=== PATIENT | female | born 1995 | race Caucasian/White ===

== ENCOUNTER 2019-08-10 11:18 | Day surgery (SDC) | payer OTHER ==
[~2019-08-10] VITALS: Ht 142.2 cm; Wt 40.4 kg
[2019-08-10] MEDS ORDERED: Keppra100 MG/1 M (12:03)
[2019-08-10] MEDS ORDERED: E E S (12:03)
[2019-08-10] MEDS ORDERED: Calcitriol1 MCG/ML (12:05)
[2019-08-10] MEDS ORDERED: Milk Of Ma400 MG/5 M (12:05)
[2019-08-10] MEDS ORDERED: Potassium20 MEQ/11 (12:05)
[2019-08-10] MEDS ORDERED: CLOBAZAM10 MG (12:06)
[2019-08-10] MEDS ORDERED: TOPI100 (12:06)
[2019-08-10] MEDS ORDERED: Prevacid Soluta30 MG (12:06)
[2019-08-10] MEDS ORDERED: Motrin100 MG/5 M (12:07)
[2019-08-10] MEDS ORDERED: Depo-Subq104 MG/0.6 (12:07)
[2019-08-10] MEDS ORDERED: BISA10S (12:08)
--- NOTE | 2019-08-10 17:34 | NUR ---
08/10/19 [id number] Jolanta Reece LATE ENTRY PT WAS ACCOMPANIED BY HER MOM AND CAREGIVER IN STEP DOWN. VSS WHILE IN STEP DOWN. PT WAS SOOTHED BY MOTHER. FACE WASHED BY RN. PT'S MOTHER ASSISTED PT TO DRESS AND TRANSFERRED INTO WHEELCHAIR. RN WENT OVER DISCHARGE INSTRUCTIONS WITH PT'S MOTHER AND CAREGIVER UNTIL ALL QUESTIONS WERE ANSWERED. PT TAKEN OUT TO VAN VIA WHEELCHAIR. PT SENT HOME WITH PERSONAL BELONGINGS AND DISCHARGE INSTRUCTIONS.
== END 2019-08-10 16:30 | disposition home or self-care (01) ==
LOC: ORSCSDS 11:18
PROVIDERS: Dentist Pediatric Dentistry
PROC: 0CDXXZ1 Extraction of Lower Tooth, Multiple, External Approach (ICD-10-PCS; principal; 2019-08-10 12:30)
PROC: 0CDWXZ1 Extraction of Upper Tooth, Multiple, External Approach (ICD-10-PCS; principal; 2019-08-10 12:30)
PROC: 0CRWXJ1 Replacement of Upper Tooth, Multiple, with Synthetic Substitute, External Approach (ICD-10-PCS; principal; 2019-08-10 12:30)
PROC: 0CRXXJ1 Replacement of Lower Tooth, Multiple, with Synthetic Substitute, External Approach (ICD-10-PCS; principal; 2019-08-10 12:30)
DX: K02.9 Dental caries, unspecified (principal); K05.10 Chronic gingivitis, plaque induced; F81.9 Developmental disorder of scholastic skills, unspecified; E72.3 Disorders of lysine and hydroxylysine metabolism; I50.9 Heart failure, unspecified; G40.909 Epilepsy, unspecified, not intractable, without status epilepticus; Z79.899 Other long term (current) drug therapy
CPT/HCPCS: J1100; J2405; J2704; J2710; J3010